=== PATIENT | male | born 1980 | race African-American/Black ===

== ENCOUNTER 2016-03-29 06:48 | Emergency (ER) | payer SELFPAY ==
[~2016-03-29] VITALS: Ht 180.3 cm; Wt 75.0 kg
[2016-03-29 06:50] VITALS: BP 132/69; PULSE 78; RESP 18; TEMP 98.3; O2SAT 95
--- NOTE | 2016-03-29 07:33 | PD ---
HPI Chief Complaint: Psychiatric Symptoms Time Seen by Provider: 07:33 Travel History International Travel<30 days: No Contact w/Intl Traveler<30days: No Traveled to known affect area: No History of Present Illness HPI 35-year-old male presents to the emergency department voluntarily for psychiatric evaluation. The patient states he has been feeling suicidal for several months. He states that he thought about cutting his wrist approximately 1 month ago. Today, he was thinking about running into traffic. He denies any attempt to harm himself. Patient reports a history of bipolar and schizophrenia. He states he was on medications, but stopped them approximately 3 months ago. This is when his suicidal ideations worsened. He does not give a reason of why he stopped his medications. The patient does state that he hears voices and having hallucinations as well. He states the voices tell him to hurt himself. The patient also reports a history of HIV. He denies any other chronic medical problems. He is not currently on antivirals. The patient admits to marijuana use and drinking a 4 pack of alcohol daily. Patient denies any medical complaints at this time. PFSH Past Medical History Autoimmune Disease: No Depression: Yes Diminished Hearing: No Social History Alcohol Use: Yes (PT STATES "ON THE WEEKENDS") Tobacco Use: Yes (1/2 PPD) Substance Use: Yes Allergies-Medications (Allergen,Severity, Reaction): Coded Allergies: No Known Allergies (Verified , 08/01/15) Reported Meds & Prescriptions Reported Meds & Active Scripts Active No Active Prescriptions or Reported Medications Review of Systems Except as stated in HPI: all other systems reviewed are Neg Physical Exam Narrative GENERAL: Well-developed well-nourished male patient, ambulatory. Afebrile. SKIN: Warm and dry. HEAD: Normocephalic. Atraumatic. EYES: No scleral icterus. No injection or drainage. NECK: Supple, trachea midline. No JVD or lymphadenopathy. CARDIOVASCULAR: Regular rate and rhythm without murmurs, gallops, or rubs. RESPIRATORY: Breath sounds equal bilaterally. No accessory muscle use. Lungs sounds are clear to auscultation. GASTROINTESTINAL: Abdomen soft, non-tender, nondistended. MUSCULOSKELETAL: No cyanosis, or edema. PSYCHIATRIC: No delusional thought processes. No current hallucinations. Data Data Last Documented VS Vital Signs Date Time Temp Pulse Resp B/P Pulse Ox O2 Delivery O2 Flow Rate FiO2 03/29/16 08:22 98.5 62 18 124/69 98 Room Air Orders Complete Blood Count With Diff (03/29/16 07:12) Comprehensive Metabolic Panel (03/29/16 07:12) Drug Screen, Random Urine (03/29/16 07:12) Alcohol (Ethanol) (03/29/16 07:12) Psych Screen (03/29/16 07:12) Diet Regular Basic (03/29/16 Breakfast) Diet Regular Basic (03/29/16 Lunch) Labs Laboratory Tests Test 03/29/16 07:51 White Blood Count 4.8 TH/MM3 Red Blood Count 4.67 MIL/MM3 Hemoglobin 14.0 GM/DL Hematocrit 41.9 % Mean Corpuscular Volume 89.7 FL Mean Corpuscular Hemoglobin 30.1 PG Mean Corpuscular Hemoglobin 33.5 % Concent Red Cell Distribution Width 13.7 % Platelet Count 298 TH/MM3 Mean Platelet Volume 8.0 FL Neutrophils (%) (Auto) 42.9 % Lymphocytes (%) (Auto) 41.9 % Monocytes (%) (Auto) 8.0 % Eosinophils (%) (Auto) 6.4 % Basophils (%) (Auto) 0.8 % Neutrophils # (Auto) 2.0 TH/MM3 Lymphocytes # (Auto) 2.0 TH/MM3 Monocytes # (Auto) 0.4 TH/MM3 Eosinophils # (Auto) 0.3 TH/MM3 Basophils # (Auto) 0.0 TH/MM3 CBC Comment DIFF FINAL Differential Comment Sodium Level 143 MEQ/L Potassium Level 3.8 MEQ/L Chloride Level 106 MEQ/L Carbon Dioxide Level 28.7 MEQ/L Anion Gap 8 MEQ/L Blood Urea Nitrogen 14 MG/DL Creatinine 1.08 MG/DL Estimat Glomerular Filtration 95 ML/MIN Rate Random Glucose 91 MG/DL Calcium Level 8.5 MG/DL Total Bilirubin 0.5 MG/DL Aspartate Amino Transf 28 U/L (AST/SGOT) Alanine Aminotransferase 28 U/L (ALT/SGPT) Alkaline Phosphatase 59 U/L Total Protein 7.7 GM/DL Albumin 3.8 GM/DL Urine Opiates Screen NEG Urine Barbiturates Screen NEG Urine Amphetamines Screen NEG Urine Benzodiazepines Screen NEG Urine Cocaine Screen POS Urine Cannabinoids Screen POS Ethyl Alcohol Level LESS THAN 3 MG/DL MDM Medical Decision Making Medical Screen Exam Complete: Yes Emergency Medical Condition: Yes Medical Record Reviewed: Yes Differential Diagnosis Bipolar versus depression versus anxiety versus schizophrenia versus psychosis versus substance abuse Narrative Course 35-year-old male presents to the emergency department voluntarily for psychiatric evaluation for suicidal ideation. He denies any medical complaints at this time. CBC, CMP, alcohol level, urine drug screen are ordered and pending. CBC is unremarkable. CMP is unremarkable. Alcohol level is less than 3. Urine drug screen is positive for cocaine and cannabinoids. Patient is medically cleared for psychiatric screening and disposition. Mental health screening discussed with the patient. Psychiatric screen ordered. Diagnosis Primary Impression: Depression Qualified Code: F32.9 - Depression, unspecified depression type Additional Instructions: Patient is medically cleared for psychiatric screening and disposition. Scripts No Active Prescriptions or Reported Meds Condition: Fabi Bush Mar 29, 2016 07:33
[2016-03-29 08:03] LABS: BASOPHIL % 0.8 % (0.0-2.0); EOSINOPHIL # 0.3 TH/MM3 (0-0.4); EOSINOPHIL % 6.4 % (0.0-4.0); HEMATOCRIT 41.9 % (39.0-51.0); HEMO FLAGS DIFF FINAL; LYMPH % 41.9 % (9.0-44.0); MEAN CELL VOLUME 89.7 FL (80.0-100.0); MEAN CORPUSCULAR HEMOGLOBIN 30.1 PG (27.0-34.0); MEAN CORPUSCULAR HGB CONC 33.5 % (32.0-36.0); NEUT % 42.9 % (16.0-70.0); PLATELET COUNT 298 TH/MM3 (150-450); RED BLOOD COUNT 4.67 MIL/MM3 (4.50-5.90); RED CELL DISTRIBUTION WIDTH 13.7 % (11.6-17.2); WHITE BLOOD COUNT 4.8 TH/MM3 (4.0-11.0)
[2016-03-29 08:13] LABS: AMPHETAMINE, URINE NEG (NEG); BARBITURATES, URINE NEG (NEG); COCAINE, URINE POS (NEG)
[2016-03-29 08:22] VITALS: BP 124/69; PULSE 62; RESP 18; TEMP 98.5; O2SAT 98
[2016-03-29 08:22] LABS: ALT (GPT) 28 U/L (12-78); ANION GAP 8 MEQ/L (5-15); AST (GOT) 28 U/L (15-37); BICARBONATE 28.7 MEQ/L (21.0-32.0); BLOOD UREA NITROGEN 14 MG/DL (7-18); CHLORIDE 106 MEQ/L (98-107); GLOMERULAR FILTRATION RATE 95 ML/MIN (>89); POTASSIUM 3.8 MEQ/L (3.5-5.1); SODIUM (NA) 143 MEQ/L (136-145)
[2016-03-29 08:23] LABS: ALKALINE PHOSPHATASE 59 U/L (45-117); TOTAL BILIRUBIN ADULT 0.5 MG/DL (0.2-1.0)
[2016-03-29 18:05] VITALS: BP 129/64; PULSE 72; RESP 18
[2016-03-29 23:27] VITALS: BP 119/65; PULSE 72; RESP 18; O2SAT 99
[2016-03-30 02:25] VITALS: BP 162/65; PULSE 73; RESP 18; TEMP 97.5; O2SAT 96
[2016-03-30 06:23] VITALS: BP 151/79; PULSE 70; RESP 18; TEMP 97.3; O2SAT 98
[2016-03-30 15:15] VITALS: BP 151/79; PULSE 70; RESP 18; O2SAT 98
[2016-03-30 15:16] VITALS: BP 113/65; PULSE 63; RESP 18
--- NOTE | 2016-03-30 18:47 | PD ---
History of Present Illness Chief Complaint: Psychiatric Symptoms Time Seen by Provider: 14:45 Travel History International Travel<30 Days: No Contact w/Intl Traveler<30days: No Known affected area: No Legal Status Legal Status: Voluntary History of Present Illness: History of Present Illness HPI 35-year-old male with history of substance abuse who presents to the emergency department voluntarily for psychiatric evaluation. As per Ed documentation included in this report" The patient states he has been feeling suicidal for several months and that he thought about cutting his wrist approximately 1 month ago. Today, he was thinking about running into traffic. He denies any attempt to harm himself. Patient reports a history of bipolar and schizophrenia. He states he was on medications, but stopped them approximately 3 months ago. This is when his suicidal ideations worsened. He does not give a reason of why he stopped his medications. The patient does state that he hears voices and having hallucinations as well. He states the voices tell him to hurt himself. As per EMR the patient was seen at [facility] [place] July 2015 for ETOH intoxication. He has no admissions to [facility]. He presents with positive toxicology for cannabinoids and cocaine. Patient was monitored in J pod overnight. He presented with no behavioral concerns and no suicidality. This morning he is alert and oriented. Speech is clear and logical. He denies any suicidal or homicidal ideation. He denies any hallucinations. " They just come and go the voices". He has not been on medications x several months nad does not state any particular reason for being off the medication. He is also not making any requests to initiate his treatment. PFSH Past Medical History Autoimmune Disease: No Bipolar Disorder: Yes Depression: Yes Diminished Hearing: No Psychiatric: Yes Schizophrenia: Yes Tetanus Vaccination: < 5 Years Influenza Vaccination: Yes Psychiatric History Psychiatric History Hx Psychiatric Treatment: No [facility] admission, states he has been to [facility] in the past. History of Inpatient Treatment: Yes Guns or firearms in home: No Social History Single male lives with his mother . Hx Alcohol Use: Yes (occasionally) Hx Tobacco Use: Yes (1/2 ppd) Hx Substance Use: Yes Substance Use Type: Alcohol, Marijuana, Cocaine Other Substances Used: States he relapsed using crack Hx of Substance Use Treatment: No Family Psychiatric History negative Allergies-Medications (Allergen,Severity, Reaction): Coded Allergies: No Known Allergies (Verified , 08/01/15) Reported Meds & Prescriptions Reported Meds & Active Scripts Active No Active Prescriptions or Reported Medications Review of Systems Except as stated in HPI: all other systems reviewed are Neg Constitutional: DENIES: Diaphoretic episodes, Fatigue, Fever, Weight gain, Weight loss, Chills, Dizziness, Change in appetite, Night Sweats Psychiatric: COMPLAINS OF: Suicidal Ideation Exam Alert: Yes [place]: Person (ox4) Mood: Calm Affect: Euthymic Speech: Clear, Logical Eye Contact: Normal Memory Intact: Comment (no impairment) Hallucinations: Other (negative) Delusions: No Suicidal: Ideation (denies any) Homicidal: Ideation (denies any) Insight/Judgement poor. poor MDM Medical Decision Making Medical Record Reviewed: Yes Assessment/Plan 35 year old male with hx of substance use disorder who presents to ed with reports of suicidal ideation. Patient was under the influence of cocaine and cannabinoids at the time of his presentation to the ed. He was allowed to sleep and was monitored closely. This morning he is denying any suicidal or homicidal ideation, there is no evidence of any hallucinatory process. At this time he will be discharged as he has made contact with his mother and wants to go back home. He will be referred to [facility] for follow up Orders Diet Regular Basic (03/30/16 Breakfast) Diet Regular Basic (03/30/16 Lunch) Results Vital Signs Date Time Temp Pulse Resp B/P Pulse Ox O2 Delivery O2 Flow Rate FiO2 03/30/16 15:16 63 18 113/65 Room Air 03/30/16 15:15 70 18 151/79 98 Room Air 03/30/16 06:23 97.3 70 18 151/79 98 Room Air 03/30/16 06:13 70 18 03/30/16 02:25 97.5 73 18 162/65 96 Room Air 03/29/16 23:27 72 18 119/65 99 03/29/16 19:22 18 Diagnosis Primary Impression: Substance induced mood disorder Ruled Out: Depression Psychiatrically Cleared: Yes Referrals: [facility] Forms: Tests/Procedures Patient Instructions: General Instructions, Depression (ED), Medical Clearance for Psychiatric Care (ED) Additional Instructions: Dx: Depression Please return to ED if symptoms worsen. Med/ Other Pt Specific Info: No Meds Exist/No RX given Prescriptions No Active Prescriptions or Reported Meds Disposition: 01 DISCHARGE HOME Condition: Stable Estefany Batista Mar 30, 2016 18:47
== END 2016-03-30 16:32 | disposition home or self-care (01) ==
LOC: NEPJ 06:48
DX: F19.94 Other psychoactive substance use, unspecified with psychoactive substance-induced mood disorder (principal); F17.210 Nicotine dependence, cigarettes, uncomplicated
CPT/HCPCS: 80053; 80307; 80320; 85025; 99285

== ENCOUNTER 2016-05-05 22:59 | Emergency (ER) | payer OTHER ==
[~2016-05-05] VITALS: Ht 180.3 cm; Wt 72.0 kg
--- NOTE | 2016-05-05 23:07 | PD ---
HPI Chief Complaint: BA Time Seen by Provider: 23:07 Travel History International Travel<30 days: No Contact w/Intl Traveler<30days: No Traveled to known affect area: No History of Present Illness HPI 35-year-old male with history of schizophrenia presents to the emergency department under Chopra act for psychiatric evaluation. Patient states he's been off his medication. He is having suicidal thoughts. Plan is to cut or jump into traffic. Denies any acute medical needs. Reports occasionally illicit drug use. He has no other symptoms to report at this time. PFSH Past Medical History Autoimmune Disease: No Bipolar Disorder: Yes Depression: Yes Diminished Hearing: No Psychiatric: Yes Schizophrenia: Yes Social History Alcohol Use: Yes (occasionally) Tobacco Use: Yes (1/2 ppd) Substance Use: Yes Allergies-Medications (Allergen,Severity, Reaction): Coded Allergies: No Known Allergies (Verified , 05/05/16) Reported Meds & Prescriptions Reported Meds & Active Scripts Active Reported Zoloft (Sertraline HCl) 25 Mg Tab 25 Mg PO DAILY Zyprexa (Olanzapine) 7.5 Mg Tab 7.5 Mg PO BID Review of Systems Except as stated in HPI: all other systems reviewed are Neg Physical Exam Narrative GENERAL: Unkempt but Well-nourished, well-developed patient. SKIN: Warm and dry. HEAD: Normocephalic. EYES: No scleral icterus. No injection or drainage. NECK: Supple, trachea midline. No JVD or lymphadenopathy. CARDIOVASCULAR: Regular rate and rhythm without murmurs, gallops, or rubs. RESPIRATORY: Breath sounds equal bilaterally. No accessory muscle use. GASTROINTESTINAL: Abdomen soft, non-tender, nondistended. MUSCULOSKELETAL: No cyanosis, or edema. BACK: Nontender without obvious deformity. No CVA tenderness. Data Data Last Documented VS Vital Signs Date Time Temp Pulse Resp B/P Pulse Ox O2 Delivery O2 Flow Rate FiO2 05/06/16 02:14 88 12 130/70 99 Room Air 05/05/16 23:11 98.1 Orders Complete Blood Count With Diff (05/05/16 23:07) Basic Metabolic Panel (Bmp) (05/05/16 23:07) Psych Screen (05/05/16 23:07) Drug Screen, Random Urine (05/05/16 23:07) Alcohol (Ethanol) (05/05/16 23:07) Labs Laboratory Tests Test 05/05/16 23:20 White Blood Count 8.3 TH/MM3 Red Blood Count 4.86 MIL/MM3 Hemoglobin 14.5 GM/DL Hematocrit 43.1 % Mean Corpuscular Volume 88.7 FL Mean Corpuscular Hemoglobin 29.8 PG Mean Corpuscular Hemoglobin 33.6 % Concent Red Cell Distribution Width 13.9 % Platelet Count 349 TH/MM3 Mean Platelet Volume 7.9 FL Neutrophils (%) (Auto) 69.6 % Lymphocytes (%) (Auto) 18.5 % Monocytes (%) (Auto) 8.9 % Eosinophils (%) (Auto) 2.6 % Basophils (%) (Auto) 0.4 % Neutrophils # (Auto) 5.8 TH/MM3 Lymphocytes # (Auto) 1.5 TH/MM3 Monocytes # (Auto) 0.7 TH/MM3 Eosinophils # (Auto) 0.2 TH/MM3 Basophils # (Auto) 0.0 TH/MM3 CBC Comment DIFF FINAL Differential Comment Sodium Level 137 MEQ/L Potassium Level 3.7 MEQ/L Chloride Level 102 MEQ/L Carbon Dioxide Level 25.0 MEQ/L Anion Gap 10 MEQ/L Blood Urea Nitrogen 13 MG/DL Creatinine 1.03 MG/DL Estimat Glomerular Filtration 100 ML/MIN Rate Random Glucose 89 MG/DL Calcium Level 8.5 MG/DL Urine Opiates Screen NEG Urine Barbiturates Screen NEG Urine Amphetamines Screen NEG Urine Benzodiazepines Screen NEG Urine Cocaine Screen POS Urine Cannabinoids Screen POS Ethyl Alcohol Level LESS THAN 3 MG/DL MDM Medical Decision Making Medical Screen Exam Complete: Yes Emergency Medical Condition: Yes Medical Record Reviewed: Yes Differential Diagnosis Mood disorder versus personality disorder versus adjustment reaction disorder Narrative Course 35-year-old male presents to emergency department for evaluation under Chopra act. Patient appears in distress. CBC and BMP are without acute concern. Toxicology is positive for cocaine and cannabinoids. Patient is medically cleared and a psychiatric screening for further evaluation and disposition. Mental health screening discussed with the patient. Psychiatric screen ordered. Diagnosis Primary Impression: Mood disorder Additional Impression: Depression Qualified Code: F32.9 - Depression, unspecified depression type Condition: Stable Steff Delcid KENDY May 05, 2016 23:07
[2016-05-05 23:11] VITALS: BP 129/74; PULSE 85; RESP 14; TEMP 98.1
[2016-05-05] MEDS ORDERED: ZYPR7.5T PO (23:11)
[2016-05-05] MEDS ORDERED: ZOLO25TA PO (23:11)
[2016-05-05 23:53] LABS: ANION GAP 10 MEQ/L (5-15); BLOOD UREA NITROGEN 13 MG/DL (7-18); CHLORIDE 102 MEQ/L (98-107); GLOMERULAR FILTRATION RATE 100 ML/MIN (>89); POTASSIUM 3.7 MEQ/L (3.5-5.1); SODIUM (NA) 137 MEQ/L (136-145)
[2016-05-05 23:56] LABS: AUTOMATED NEUTROPHIL # 5.8 TH/MM3 (1.8-7.7); BASOPHIL % 0.4 % (0.0-2.0); EOSINOPHIL # 0.2 TH/MM3 (0-0.4); EOSINOPHIL % 2.6 % (0.0-4.0); HEMATOCRIT 43.1 % (39.0-51.0); HEMO FLAGS DIFF FINAL; LYMPH % 18.5 % (9.0-44.0); LYMPHOCYTE # 1.5 TH/MM3 (1.0-4.8); MEAN CELL VOLUME 88.7 FL (80.0-100.0); MEAN CORPUSCULAR HEMOGLOBIN 29.8 PG (27.0-34.0); MEAN CORPUSCULAR HGB CONC 33.6 % (32.0-36.0); MONO % 8.9 % (0.0-8.0); NEUT % 69.6 % (16.0-70.0); PLATELET COUNT 349 TH/MM3 (150-450); RED BLOOD COUNT 4.86 MIL/MM3 (4.50-5.90); RED CELL DISTRIBUTION WIDTH 13.9 % (11.6-17.2); WHITE BLOOD COUNT 8.3 TH/MM3 (4.0-11.0)
[2016-05-05 23:58] LABS: AMPHETAMINE, URINE NEG (NEG); BARBITURATES, URINE NEG (NEG); COCAINE, URINE POS (NEG)
[2016-05-06 02:14] VITALS: BP 130/70; PULSE 8; PULSE 88; RESP 12; O2SAT 99
[2016-05-06 04:56] VITALS: BP 136/74; PULSE 74; RESP 18; TEMP 97.4; O2SAT 97
[2016-05-06 06:12] VITALS: BP 111/62; PULSE 63; RESP 18; TEMP 98; O2SAT 96
--- NOTE | 2016-05-06 13:22 | PD ---
History of Present Illness Chief Complaint: Psychiatric Symptoms Time Seen by Provider: 12:45 Travel History International Travel<30 Days: No Contact w/Intl Traveler<30days: No Known affected area: No Legal Status Legal Status: Chopra Act Chopra Act Signed By: Shanique Duval History of Present Illness: History of Present Illness HPI 35-year-old male with history of substance abuse and a self reported history of bipolar disorder and schizophrenia who presents to the emergency department under Chopra act for psychiatric evaluation. As per the BA report " Mannie. W. stated that he wanted to kill himself by cutting his wrist. He reported to ed provider that he had thoughts of either cutting or to jump into traffic. Patient was monitored in J pod and he has presented no behavioral concerns and no suicidality. His toxicology is positive for cocaine as well as cannabinoids. EMR reviewed. He last was evaluated in March and dx with substance induced mood disorder. he was referred to [facility] but has not followed up with discharge recommendations. He is seen in J [pod. He is alert, oriented, engaging and cooperative. His speech is clear and logical, goal directed. He does not appear to be internally stimulated and there is no evidence of any hallucinations or delusions. There is no salena. He states that he is trying to get to [facility] " because I need to stop using drugs". He acknowledges that he has a problem with substances and at this time wishes to pursue treatment for such. He is requesting parts counterman treatment " where I can stay so that I don't go back in the streets". He is not presenting any suicidal ideation, intent or plan at this time. He gives permission for me to contact his mother. Telephone call to his mother at [phone]. She confirms that the patient's difficulty stem from his continued drug use. She has told him that he needs to make a decision to seek treatment at this time since she is physically ill. Her only concern for him if he were to be discharged is that he will continue to use substances. PFSH Past Medical History Autoimmune Disease: No Bipolar Disorder: Yes Depression: Yes Diminished Hearing: No Psychiatric: Yes Schizophrenia: Yes Past Surgical History Surgical History: No Previous Surgery Psychiatric History Psychiatric History Hx Psychiatric Treatment: HX: BIPOLAR DISORDER AND DEPRESSION History of Inpatient Treatment: Yes ([facility]) Guns or firearms in home: No Social History Single male who lives with his mother. Unemployed. Hx Alcohol Use: Yes (daily) Hx Tobacco Use: Yes (1 ppd) Hx Substance Use: Yes Substance Use Type: Alcohol, Marijuana, Cocaine Other Substances Used: States he relapsed using crack Hx of Substance Use Treatment: No Family Psychiatric History None reported Allergies-Medications (Allergen,Severity, Reaction): Coded Allergies: No Known Allergies (Verified , 05/05/16) Reported Meds & Prescriptions Reported Meds & Active Scripts Active Reported Zoloft (Sertraline HCl) 25 Mg Tab 25 Mg PO DAILY Zyprexa (Olanzapine) 7.5 Mg Tab 7.5 Mg PO BID Review of Systems Except as stated in HPI: all other systems reviewed are Neg Constitutional: DENIES: Diaphoretic episodes, Fatigue, Fever, Weight gain, Weight loss, Chills, Dizziness, Change in appetite, Night Sweats Psychiatric: DENIES: Anxiety, Confusion, Mood changes, Depression, Hallucinations, Agitation, Suicidal Ideation, Homicidal Ideation, Delusions Exam Alert: Yes [place]: Person (ox4) Mood: Calm Affect: Euthymic Speech: Clear, Logical Eye Contact: Normal Memory Intact: Comment (no impairment) Hallucinations: Other (negative) Delusions: No Suicidal: Ideation (neagtive at this time) Homicidal: Ideation (negative at this time.) Insight/Judgement Poor. Not impaired MDM Medical Decision Making Medical Record Reviewed: Yes Assessment/Plan 35 year old male with history of substance abuse who presents to ED under a BA after he informed the police that he was thinking of cutting his wrist. Patient under the influence of marijuana as well as cocaine at the time. He was monitored in J pod where he was allowed to sober up clinically. At this time he is sober and he does not present any suicidal or homicidal ideation or any psychosis. He does not present imminent risk to self or others. His main goal is to be admitted to a substance abuse treatment facility on a parts counterman basis. He will be provided with such information. He is also strongly recommended to follow up with [facility]. Psycho education is provided. At this time he does not meet criteria for BA. Will be discharge at this time. Orders Complete Blood Count With Diff (05/05/16 23:07) Basic Metabolic Panel (Bmp) (05/05/16 23:07) Psych Screen (05/05/16 23:07) Drug Screen, Random Urine (05/05/16 23:07) Alcohol (Ethanol) (05/05/16 23:07) Diet Regular Basic (05/06/16 Lunch) Results Vital Signs Date Time Temp Pulse Resp B/P Pulse Ox O2 Delivery O2 Flow Rate FiO2 05/06/16 06:12 98.0 63 18 111/62 96 Room Air 05/06/16 04:56 97.4 74 18 136/74 97 Room Air 05/06/16 02:14 88 12 130/70 99 Room Air 05/05/16 23:11 98.1 85 14 129/74 Laboratory Tests Test 05/05/16 23:20 White Blood Count 8.3 Red Blood Count 4.86 Hemoglobin 14.5 Hematocrit 43.1 Mean Corpuscular Volume 88.7 Mean Corpuscular Hemoglobin 29.8 Mean Corpuscular Hemoglobin 33.6 Concent Red Cell Distribution Width 13.9 Platelet Count 349 Mean Platelet Volume 7.9 Neutrophils (%) (Auto) 69.6 Lymphocytes (%) (Auto) 18.5 Monocytes (%) (Auto) 8.9 Eosinophils (%) (Auto) 2.6 Basophils (%) (Auto) 0.4 Neutrophils # (Auto) 5.8 Lymphocytes # (Auto) 1.5 Monocytes # (Auto) 0.7 Eosinophils # (Auto) 0.2 Basophils # (Auto) 0.0 CBC Comment DIFF FINAL Differential Comment Sodium Level 137 Potassium Level 3.7 Chloride Level 102 Carbon Dioxide Level 25.0 Anion Gap 10 Blood Urea Nitrogen 13 Creatinine 1.03 Estimat Glomerular Filtration 100 Rate Random Glucose 89 Calcium Level 8.5 Urine Opiates Screen NEG Urine Barbiturates Screen NEG Urine Amphetamines Screen NEG Urine Benzodiazepines Screen NEG Urine Cocaine Screen POS Urine Cannabinoids Screen POS Ethyl Alcohol Level LESS THAN 3 Diagnosis Primary Impression: Substance induced mood disorder Psychiatrically Cleared: Yes Med/ Other Pt Specific Info: No Meds Exist/No RX given Disposition: 01 DISCHARGE HOME Condition: Stable Estefany Batista GLENN May 06, 2016 13:22
[2016-05-06 14:39] VITALS: BP 135/65; TEMP 98.1
== END 2016-05-06 15:50 | disposition home or self-care (01) ==
LOC: NEPA 22:59 → NEPJ 05-06 15:50
DX: F14.94 Cocaine use, unspecified with cocaine-induced mood disorder (principal)
CPT/HCPCS: 80048; 80307; 80320; 85025; 99283